=== PATIENT | male | born 1955 | race Caucasian/White ===

== ENCOUNTER 2016-05-05 13:41 | Emergency (ER) | payer BC, OTHER ==
[~2016-05-05] VITALS: Ht 170.2 cm; Wt 113.0 kg
[~2016-05-05 13:41] MED LIST: ASPI-860 PO; LEVO25TA9 PO
--- OUTSIDE RECORDS SUMMARY | 2016-05-05 13:46 | XMS REPORT | Summary of Care ---
Author Author Shereen Majano APRN Organization Unknown Address [address], [place] [id number] Phone Unavailable Care Team Providers Care Coat Finisher Name Role Phone Shereen Majano APRN Unavailable Unavailable Surinder Kam M.D. Unavailable Unavailable Edis Wallace Unavailable Unavailable Unavailable Unavailable Functional Status Name Dates Details Functional status health issues are not documented Status: Name Dates Details Cognitive status health issues are not documented Status: Problems Name Dates Details Nasal septal deviation (470, J34.2) Status: Active Hypertrophy of nasal turbinates (478.0, J34.3) Status: Active History of Counseling on substance use and abuse (V65.42, Z71.89) Status: Resolved Obstructive sleep apnea (327.23, G47.33) Status: Active Nicotine dependence (305.1, F17.200) Status: Active Medications Name Dates Details Levothyroxine Sodium 25 MCG Oral Tablet Refills: 0 Start 16-Nov-2012 Active Aspirin 81 MG TABS Refills: 0 Start 08-May-2013 Active Bactroban 2 % OINT APPLY A SMALL AMOUNT ON COTTON SWAB TO EACH NOSTRIL TWICE DAILY FOR 10 DAYS Quantity: 1 Refills: 0 Gera Kam M.D. Start 08-May-2013 Active 15 GM Tube Supplies CPAP repair, services and supplies, G47.33 Mask, headgear, filters, heated tubing, chinstrap Quantity: 1 Refills: 11 Shereen Majano APRN Start 20-Mar-2014 Active Crestor 5 MG Oral Tablet TAKE 1 TABLET DAILY. Refills: 0 Start 05-Apr-2016 Active Niacin ER 1000 MG Oral Tablet Extended Release 3 times Refills: 0 Start 05-Apr-2016 Active Allergies and Adverse Reactions Name Dates Details No Known Drug Allergies (Allergy) Status: Active Past Medical History Name Dates Details History of Counseling on substance use and abuse (V65.42, Z71.89) Status: Resolved Procedures Procedure Dates Details History of Back Surgery History of Arthrotomy With Excision Of Cartilage Of Acromioclav Joint Procedures not documented Immunization Name Dates Details Immunizations not documented Family History Name Dates Details Family history of Asthma (V17.5) Status: Active Family history of Chronic Obstructive Pulmonary Disease Status: Active Family history of Dementia Status: Active Family history of Diabetes Mellitus (V18.0) Status: Active Family history of Mother At Age ____ Status: Active Name Dates Details Family history of Sleep Apnea Status: Active Family history of Heart Disease (V17.49) Status: Active Family history of Father At Age ____ Status: Active Name Dates Details Family history of Sleep Apnea Status: Active Name Dates Details Family history of Sleep Apnea Status: Active Social History Name Dates Details Unknown if ever smoked Vital Signs Date Test Result Details 05-Apr-2016 11:01 BP Systolic 136 mm[Hg] Status: Comments: Location: ; Position: BP Diastolic 86 mm[Hg] Status: Comments: Location: ; Position: Heart Rate 69 /min Status: Comments: Location: ; Weight 253 lb Status: Physical Findings 97 Status: Comments: O2 Saturation Body Mass Index Calculated 39.63 kg/m2 Status: Body Surface Area Calculated 2.23 m2 Status: Results Date Description Value Details Results not documented Plan of Care Name Dates Details Planned Observations Planned Goals not documented Planned Encounters Appointment; Provider: Shereen Majano A.P.R.N. On 04-Apr-2017 14:30 Interventions Provided Medication ChangesSupplies - Renew Instructions Name Dates Details Instructions not documented Encounters Appointment; Rhonda Jimenez P.A. Encounter Diagnosis: Problem not documented On 19-Mar-2015 15:00
[2016-05-05] MEDS ORDERED: LEVO88TA4 PO (14:12)
[2016-05-05] MEDS ORDERED: HYDROmorphone 2 MG/ML (DILAUDID) 1 ML SYRINGE IM ONE (14:15)
[2016-05-05] MEDS ORDERED: DEXAMETHASONE 4 MG/ML (DECADRON) 5ml VIAL IM ONE (14:15)
[2016-05-05] MEDS ORDERED: PRED20TA PO (14:19)
[2016-05-05] MEDS ORDERED: HYDR-33 PO (14:19)
[2016-05-05] MEDS ORDERED: ROSU5TAB9 PO (14:34)
[2016-05-05 15:10] VITALS: BP 158/77
== END 2016-05-05 15:17 | disposition home or self-care (01) ==
LOC: ED 13:44
DX: M54.41 Lumbago with sciatica, right side (principal); M54.16 Radiculopathy, lumbar region
CPT/HCPCS: 96372; 99282; J1100; J1170; 99283

== ENCOUNTER → 2016-05-09 | Outpatient (CLI) | payer OTHER ==
[~2016-05-09] MED LIST changes: +HYDR-33 PO; +LEVO88TA4 PO; +PRED20TA PO; +ROSU5TAB9 PO; +methylPREDNISolone 80 MG/ML (DEPO MEDROL) VIAL IM ONE
--- NOTE | 2016-05-10 08:41 | PAIN MANAGEMENT ---
Date of note: 05/09/2016 Procedure: Epidural steroid injection at L4-L5 for right-leg radiculopathy This is a 61-year-old patient of Dr. Silver Whiteside. The patient presents with a longstanding history of back pain. He has had lumbar surgery 30 years ago. Today he presents with pain in his right leg in the dermatome level of L5 and L4 with L5 being predominant. Informed consent was achieved for an epidural steroid injection at L4-5. Orders for procedure verified. Patient denies any bleeding tendencies. After informed consent obtained, the patient was positioned for the lumbar epidural steroid injection. The area was prepped and draped using aseptic technique. The skin and overlying tissues were localized using 3 mL of 1% Preservative-Free lidocaine using a 25-gauge 1.5-inch needle. A 20-gauge Tuohy needle was advanced, using "loss of resistance" technique, to the epidural space. No blood, cerebral spinal fluid, pain, or paresthesia noted on entry of the epidural space. A 1 mL solution of Depo-Medrol 80 mg was injected slowly without mass volume effect. The patient was placed in supine position 15 minutes prior to being released with proper leg strength and vitals. Pre- and post procedure vital signs stable with no sensory or motor deficit noted. Instruction on followup contact and care provided to the patient.
== END ==
LOC: PMC 14:22
PROVIDERS: ATTEND Family Medicine
DX: M54.16 Radiculopathy, lumbar region (principal)
CPT/HCPCS: 62323; J1040